=== PATIENT | female | born 1980 | race Caucasian/White ===

== ENCOUNTER 2024-06-23 19:47 | Emergency (ER) | payer OTHER, SELFPAY ==
[2024-06-23 20:02] VITALS: BP 138/100
--- NOTE | 2024-06-23 20:20 | ED.GENMED ---
ED Provider Triage
<Kayla Rivera PA-C - Last Filed: 06/23/24 20:25>
-
Patient seen by provider in Triage?: Seen in Triage
A medical screening examination has been initiated by a qualified medical provider. Based on the assessment performed at this time, it has been determined that an emergent medical condition may exist and the patient has been informed that further
medical evaluation and possible additional diagnostic testing may be needed.
HPI: This is a medical evaluation conducted in person to initiate diagnostic evaluation and provide initial therapeutics. Please see further documentation by the treating clinician.
GENERAL: Alert , in no apparent distress
ENT: No visible abnormalities
LUNGS: No acute respiratory distress
NEUROLOGICAL: Alert and oriented
ABD: RUQ tenderness
no significant RLQ tenderness
SKIN: Skin intact. No visible changes.
MUSCULOSKELETAL: Moving extremities normally
PSYCH: Normal and appropriate interaction.
43 y/o F h/o PCOS
woke up with pain to R abdomen and nausea
coming in waves
worse with standing and walking
vomited x 1
no diarrhea, no urinary changes
c sectio previously
went to and sent here
well appearing
RLQ not speicifcally tender
RUQ tender with minaya's sign
will start with labs, US.
pt may need ct
pain appears to high to be from ovarian source
History of Present Illness
<Kayla Rivera PA-C - Last Filed: 06/23/24 20:25>
General
Chief Complaint: Abdominal Pain
Time Seen by Provider: 06/23/24 22:41
<Randy Chakraborty DO - Last Filed: 06/23/24 23:18>
General
Source: patient and family
Exam Limitations: none
Nursing documentation reviewed up to this point in time: agreed with
History of Present Illness
History of Present Illness:
Pleasant 43-year-old female who presents with right upper quadrant abdominal pain. She states that it comes in waves. She did have 1 episode of vomiting after awakening this morning. Pain is exacerbated when she walks. When she drove over here
she states that pain was worse. Denies any bowel changes. Patient has a history of PCOS. Her only abdominal surgery was a . She is on Wegovy, week 10 and states that she has similar symptoms with its administration. She was seen in
urgent care and sent into the emergency department for evaluation of her gallbladder. Denies any urinary symptoms. Reports no fevers, chills, chest pain, or shortness of breath.
Review of Systems
<Randy Chakraborty DO - Last Filed: 06/23/24 23:18>
Review of Systems
Allergies reviewed?: Yes
All Other Systems: ROS reviewed and negative except as documented in HPI and ROS
Constitutional: Reports no symptoms
EENT: Reports no symptoms
Respiratory: Reports no symptoms
Cardiac: Reports no symptoms
ABD/GI: Reports abdominal pain, nausea and vomiting
: Reports no symptoms
Musculoskeletal: Reports no symptoms
Skin: Reports no symptoms
Neurological: Reports no symptoms
Endocrine: Reports no symptoms
Hematologic/Lymphatic: Reports no symptoms
Psychiatric: Reports no symptoms
Phy Exam
<Randy Chakraborty DO - Last Filed: 06/23/24 23:18>
General Physical Exam
General Presentation: well appearing and no apparent distress
General Skin: warm and dry
General Habitus: normal
General Mental: alert
General Hydration: appears well hydrated
ENT Exam
ENT Exam: EOMI, pharynx normal, neck supple and normocephalic
Eye Exam
Eye Exam: PERRL, cornea clear and conjunctiva normal
Cardiovascular Exam
Cardiovascular Exam: regular rate/rhythm, no edema, no murmur and normal peripheral pulses
Pulmonary Exam
Pulmonary Exam: lungs clear, no respiratory distress, no rales, no crackles, no rhonchi, no stridor, no wheezing and no cough
Gastrointestinal Exam
Gastrointestinal Exam: normal bowel sounds, non tender, soft, no organomegaly, no pulsatile mass and non distended
Palpation: right upper quadrant: Minimal tenderness and right lower quadrant: No tenderness
Neurological Exam
Neurological Exam: alert, oriented x3, no motor deficits and speech normal
Musculoskeletal Exam
Musculoskeletal Exam: full ROM and no edema
Skin Exam
Skin Exam: normal color, warm/dry, no rash and no petechia
Psychiatric Exam
Psychiatric Exam: normal mood/affect
Course
<Kayla Rivera PA-C - Last Filed: 06/23/24 20:25>
Orders/Labs/Results
Orders:
Orders
06/23/24 20:08
Test Result ONCE
06/23/24 20:22
Complete Blood Count/With Diff Urgent
Comprehensive Metabolic Panel Urgent
HCG, Serum Qualitative Screen Urgent
Comment: Notify provider if positive test present
Lipase Urgent
Urinalysis Reflex To Culture Urgent
Date Specimen was Collected: 06/23/24
Time Specimen was Collected: 20:13
06/23/24 20:23
US Abdomen Complete/Upper Urgent
Comment:
Reason For Exam: right sided abd pain,, tender RUQ
Abnormal Lab Results
06/23/24
20:22
MCH 31.3 H pg
(27.0-31.0)
Absolute Neuts (auto) 7.1 H 10^3/uL
(1.4-6.5)
06/23/24 20:22
06/23/24 20:22
Vital Signs
Initial and Last Documented VS:
Initial Vital Signs
Temp Pulse Resp BP Pulse Ox
98.4 F 95 16 138/100 98
06/23/24 20:02 06/23/24 20:02 06/23/24 20:02 06/23/24 20:02 06/23/24 20:02
Last Documented Vital Signs
Temp Pulse Resp BP Pulse Ox
98.4 F 95 16 138/100 98
06/23/24 20:02 06/23/24 20:02 06/23/24 20:02 06/23/24 20:02 06/23/24 20:02
<Randy Chakraborty, DO - Last Filed: 06/23/24 23:18>
Orders/Labs/Results
Orders:
Orders
06/23/24 20:08
Test Result ONCE
06/23/24 20:22
Complete Blood Count/With Diff Urgent
Comprehensive Metabolic Panel Urgent
HCG, Serum Qualitative Screen Urgent
Comment: Notify provider if positive test present
Lipase Urgent
Urinalysis Reflex To Culture Urgent
Date Specimen was Collected: 06/23/24
Time Specimen was Collected: 20:13
06/23/24 20:23
US Abdomen Complete/Upper Urgent
Comment:
Reason For Exam: right sided abd pain,, tender RUQ
Abnormal Lab Results
06/23/24
20:22
MCH 31.3 H pg
(27.0-31.0)
Absolute Neuts (auto) 7.1 H 10^3/uL
(1.4-6.5)
06/23/24 20:22
06/23/24 20:22
Vital Signs
Initial and Last Documented VS:
Initial Vital Signs
Temp Pulse Resp BP Pulse Ox
98.4 F 95 16 138/100 98
06/23/24 20:02 06/23/24 20:02 06/23/24 20:02 06/23/24 20:02 06/23/24 20:02
Last Documented Vital Signs
Temp Pulse Resp BP Pulse Ox
98.4 F 95 16 138/100 98
06/23/24 20:02 06/23/24 20:02 06/23/24 20:02 06/23/24 20:02 06/23/24 20:02
<DO Tonya De La Cruz Last Filed: 06/23/24 23:18>
MDM/Problems Addressed
Differential Diagnosis Includes:
Gallbladder, medication side effects, gastroenteritis, GI bug, norovirus
MDM/Problems Addressed:
43-year-old female on Wegovy presents with right upper quadrant abdominal pain, nausea or vomiting.
Chronic conditions affecting care:
PCOS,
<Randy Chakraborty DO - Last Filed: 06/23/24 23:18>
*Radiology
Radiology exam reviewed: radiology read reviewed
*Critical Care Note
Total Time (30-74mins, 75-104mins- exclusive of procedures): Not Applicable
<DO Tonya De La Cruz Last Filed: 06/23/24 23:18>
Update Note
Update Note:
At time of my exam, patient states that pain subsided. In triage she apparently had positive Minaya sign. This was not exhibited during my exam. I discussed normal lab work and ultrasound did not see any gallbladder findings with patient. I did
offer a CT scan. At this time she deferred stating that she would return to the emergency department with any return of symptoms. Patient and I discussed return to ER instructions. I also will give her the name of the general surgeon on-call.
ED Attending Note
<Kayla Rivera PA-C - Last Filed: 06/23/24 20:25>
-
Portions of this chart may have been created with voice recognition software.� Occasional wrong word or��sound alike� substitutions may have occurred due to the inherent limitations of voice recognition software.
Discharge Plan
Departure
Patient Disposition: Home (Routine Discharge)
Date of Disposition: 06/23/24
Time of Disposition: 23:10
Patient with high blood pressure during this ER visit?: Yes
Discharge Problem:
Biliary colic, Abdominal pain, Medication adverse effect
Instructions: Nausea and Vomiting, Adult (DC), Abdominal Pain, BLOOD PRESSURE
Referrals:
Walter Dimas MD [Active] -
Kiran Mccall DO [Family Provider] -
Activity Restrictions/Additional Instructions:
Please continue to take your Reglan as previously prescribed
It was a pleasure meeting you and taking part in your care. We hope for your continued healing and wellness.
Please read discharge instructions in their entirety. However, they are for general education and may not describe your exact diagnosis at discharge. Information on your ER visit and medical conditions were discussed with you along with appropriate
follow up information...
If indicated, please take your medications as instructed and indicated on discharge paperwork.
Please schedule a follow up appointment as directed. Call to schedule an appointment
Please return to the emergency department with ANY change in, persisting, or worsening of symptoms. If any of your symptoms do not improve, or persist, or become more severe within 6-12 hours, please return to the emergency department for further
care.
Please return to the emergency department if you develop a headache, neck pain/stiffness, fever greater than 100.4F, chest pain, shortness of breath, persistent nausea, vomiting, slurred speech, difficulty walking, numbness/tingling, weakness, signs
of infection or any other symptoms that are worrisome to you.
If you have any questions or concerns please do not hesitate to call the Hospital at or E-mail me directly at
Interventions
Interventions:
*Risk Screen - Suicide Last Done: 06/23/24 20:02
*General Assessment Last Done: 06/23/24 20:02
Discharge Date and Time
Print Language: MONGOLIAN
[2024-06-23 20:34] LABS: % Basophils 0.3 % (0-2); % Eosinophils 1.2 % (0-6); % Immature Granulocytes 0.2 % (0-0.5); % Lymphocytes 21.2 % (20.5-51.1); % Monocytes 6.1 % (1.7-9.3); Absolute Eosinophils 0.1 10^3/uL (0-0.7); Absolute Lymphocytes 2.1 10^3/uL (1.2-3.4); Absolute Monocytes 0.6 10^3/uL (0.1-0.6); Absolute Neutrophils 7.1 10^3/uL (1.4-6.5); Hematocrit 39.9 % (37.0-47.0); Hemoglobin 13.5 g/dL (12.0-16.0); Mean Corp Hgb Conc. 33.8 g/dL (33.0-37.0); Mean Corpuscular Hgb 31.3 pg (27.0-31.0); Mean Corpuscular Volume 92.4 fL (81.0-99.0); Mean Platelet Volume 9.3 fL (7.4-10.4); Nucleated Red Blood Cells % 0 %; Platelet Count 306 10^3/uL (130-400); Red Blood Cell Count 4.32 10^6/uL (4.20-5.40); Red Cell Dist. Width 12.5 % (11.5-14.5); White Blood Cell Count 10.1 10^3/uL (4.8-10.8)
[2024-06-23 20:37] LABS: Urine Albumin Negative (Neg - Trace); Urine Bilirubin Negative (Negative); Urine Character Clear (Clear); Urine Color Straw; Urine Glucose Negative (Negative); Urine Ketone Negative (Negative); Urine Leukocyte Negative (Negative); Urine Nitrite Negative (Negative); Urine Occult Blood Negative (Negative); Urine Specific Gravity 1.005 (<1.030); Urine Urobilinogen Negative (Neg - 1+); Urine pH 6.5 (5.0-9.0)
[2024-06-23 20:48] LABS: HCG, Serum Qualitative Screen Negative
[2024-06-23 20:52] LABS: ALT (SGPT) 20 U/L (0-35); AST (SGOT) 21 U/L (14-36); Albumin 4.7 g/dl (3.5-5.0); Alkaline Phosphatase 49 U/L (38-126); Blood Urea Nitrogen 11 mg/dl (7-17); Calcium 9.8 mg/dl (8.4-10.2); Carbon Dioxide 29 mmol/L (22-30); Chloride 101 mmol/L (98-107); Glucose 97 mg/dl (70-99); Lipase 251 U/L (23-300); Potassium 4.3 mmol/L (3.5-5.1); Sodium 139 mmol/L (135-145); Total Bilirubin 0.7 mg/dl (0.2-1.3); Total Protein 7.4 g/dl (6.3-8.2); eGFR > 60.00
[2024-06-23 23:34] VITALS: BP 106/77
== END 2024-06-23 23:39 | disposition home or self-care (01) ==
LOC: EMR 19:47
PROVIDERS: Student in an Organized Health Care Education/Training Program; EMERGENCY PHYSICIAN Student in an Organized Health Care Education/Training Program; FAMILY PHYSICIAN Family Medicine
DX: R10.11 Right upper quadrant pain (principal); R11.2 Nausea with vomiting, unspecified; T50.905A Adverse effect of unspecified drugs, medicaments and biological substances, initial encounter; K80.50 Calculus of bile duct without cholangitis or cholecystitis without obstruction; R03.0 Elevated blood-pressure reading, without diagnosis of hypertension; E28.2 Polycystic ovarian syndrome
CPT/HCPCS: 99284; 76700; 80053; 81003; 83690; 84703; 85025